=== PATIENT | male | born 1940 | race Caucasian/White ===

== ENCOUNTER 2017-04-30 12:20 | Inpatient (IN) | payer MEDICARE ==
[2017-04-30 14:09] LABS: #Basophils 0.1 thou/uL (0.0-0.2); #Eosinphils 0.1 thou/uL (0.0-0.7); #Lymphocytes 1.1 thou/uL (1.20-3.40); #Monocytes 0.3 thou/uL (0.11-0.59); #Neutrophils 2.9 thou/uL (1.40-6.50); %Basophils 1.5 % (0.0-1.0); %Eosinophils 2.6 % (0.0-10.0); %Lymphocytes 23.3 % (21.0-51.0); %Monocytes 7.6 % (0.0-10.0); Hematocrit 40.7 % (42.0-52.0); Mean Platelet Volume 8.2 fL (7.4-10.4); Red Blood Cell (RBC) Count 4.02 mill/uL (4.70-6.10); White Blood Cell (WBC) Count 4.5 thou/uL (4.8-10.8)
[2017-04-30] MEDS ORDERED: Diprivan 20 ML ONE (14:12)
[2017-04-30 14:16] LABS: PTT 32.5 SEC (22.9-36.1); Prothrombin Time 15.3 SEC (12.0-14.7)
[2017-04-30] MEDS ORDERED: Propofol 200 MG/20 ML VIAL ONE (14:44)
[2017-04-30] MEDS ORDERED: DOPamine 400 MG/D5W 250 ML 250 ML IVPB PRN (18:38)
[2017-04-30 19:08] VITALS: BMI 26.4
[2017-04-30] MEDS ORDERED: diphenhydrAMINE 25 MG CAP PO PRN (19:40)
[2017-04-30] MEDS ORDERED: Ondansetron HCl/PF 4 MG/2 ML Vial IVP PRN (19:40)
[2017-04-30] MEDS ORDERED: Bisacodyl 5 MG TAB PO PRN (19:40)
[2017-04-30] MEDS ORDERED: Bisacodyl 10 MG SUPP PR PRN (19:40)
[2017-04-30] MEDS ORDERED: traMADol HCl 50 MG TAB PO PRN (19:40)
[2017-04-30] MEDS ORDERED: Nitroglycerin 0.4 MG TAB (25 Tab Bottle) SL PRN (19:40)
[2017-04-30] MEDS ORDERED: Acetaminophen 325 MG TAB PO PRN (19:40)
[2017-04-30] MEDS ORDERED: Mag-Al 1200 mg/1200 mg/30 ML UDCUP PO PRN (19:40)
[2017-04-30] MEDS ORDERED: Silver Sulfadiazine 1% Cream 50 GM JAR TOP PRN (19:40)
[2017-04-30] MEDS ORDERED: Temazepam 15 MG CAP PO PRN (19:40)
--- NOTE | 2017-04-30 23:31 | OP ---
DATE OF SERVICE: 04/30/2017 PROCEDURE PERFORMED: Cardioversion. REASON FOR PROCEDURE: Mr. Henriquez is a 77-year-old man with a history of atrial flutter. He is on Eliquis for anticoagulation. He has normal heart function, otherwise here for a cardioversion. DESCRIPTION OF PROCEDURE: The patient received propofol per Anesthesia specialist. After an adequa te level of sedation achieved, a synchronized 70-joule shock promptly converted back to sinus rhythm . Occasionally, junctional bradycardia was also seen. A long pause was seen post-cardioversion and transient pacing was also instituted. Following that with improving consciousness, the heart rates improved. PLAN: 1. Monitor for heart rates. We will get 12-lead EKG. 2. Continue Eliquis. 3. Hence the bradycardia, hold metoprolol, consider pacing if symptoms noted. 4. The patient is set for cavotricuspid isthmus ablation after return from their trip.
[2017-05-01] MEDS ORDERED: CEFAZOLIN 1 GM VIAL ONE (15:38)
[2017-05-01] MEDS ORDERED: CEFAZOLIN/Water 2 GM/20 ML SYRINGE ONE (15:38)
[2017-05-01] MEDS ORDERED: Fentanyl 100 MCG/2 ML VIAL ONE (16:03)
--- NOTE | 2017-05-01 18:04 | PRG ---
DATE OF SERVICE: 05/01/2017 This is a followup note. SUBJECTIVE: Mr. Henriquez is doing fair, continued to be dizzy overnight and eventually was starte d on dopamine. This morning he is stable on dopamine. OBJECTIVE DATA: VITAL SIGNS: Blood pressure is 105/57, heart rate 51, respiration 16, temperature is 97.8 degrees F ahrenheit. GENERAL: Alert and oriented man in no apparent distress. NECK: Supple. Jugular veins not distended. CHEST: Coarse without crackles. CARDIOVASCULAR: Heart sounds are regular to rate and rhythm. No murmur or gallop. ABDOMEN: Benign. Bowel sounds positive. EXTREMITIES: Lower extremities without edema, clubbing or cyanosis. DATABASE: The EKG reveals sinus bradycardia, occasional atrial tachycardia runs seen, no atrial flu tter is noted. ASSESSMENT AND PLAN: Mr. Henriquez is a 77-year-old man with prior history of hypertension and armando e mild dementia who presents with atrial flutter. He has been cardioverted from atrial flutter, but remained in marked sinus bradycardia with these symptoms. He required dopamine overnight for heart rate maintenance. He has been off beta blockers now for 3 days. I discussed the pros and cons about the potential pacemaker implant and we will proceed with this an d we have been holding her Eliquis overnight. We will resume Eliquis after her pacemaker implant tod tiffanie. Risks and benefits including bleeding and strokes were discussed. They are willing to proceed.
--- NOTE | 2017-05-01 20:25 | PRG ---
DATE OF SERVICE: 04/30/2017 ELECTROPHYSIOLOGY FOLLOWUP NOTE SUBJECTIVE: Mr. Henriquez is here after his successful cardioversion from atrial flutter to sinus rhythm, but his heart rates remain extremely bradycardic. He had episodic atrial tachyarrhythmias, but now atrial flutter is seen. Now his heart rates are in the 40s and he has dizzy spells. Blood pressure is adequate. He has not taken his metoprolol succinate yesterday or Thursday. He has no chest pains, no PND or orthopnea though. He has no stroke-like symptoms. No bleeding issues. Cont inues on Eliquis. The rest of the 12-point review system otherwise unremarkable. OBJECTIVE DATA: VITAL SIGNS: Blood pressure is 120/78, heart rate 48, respirations 15, temperature 97.7 degrees Fah renheit. GENERAL: Alert and oriented man, in no apparent distress. NECK: Supple. Jugular veins not distended. CHEST: Coarse without crackles. CARDIOVASCULAR: Heart sounds are regular to rate and rhythm. No murmur or gallop. ABDOMEN: Benign. Bowel sounds positive. EXTREMITIES: Lower extremities without edema, clubbing or cyanosis. DATABASE: EKG and telemetry reveals sinus rhythm, sinus bradycardia, occasional atrial tachycardia in the 90s is seen. Most of the time, his heart rate was in the 40s, occasionally gets below 40. LABORATORY DATA: White cells 4.5, hemoglobin 13.3, platelet count 176. INR 1.2 on 04/30/2017. ASSESSMENT AND PLAN: Mr. Henriquez is a 77-year-old man with history of hypertension and persisten t atrial flutter. He has been started on Eliquis over a month ago and has been tolerating it well. Now, he is here for cardioversion, which he underwent successfully. On the other hand, his recurre nt rhythm is sinus bradycardia. He has not been on beta kaiser for over 2 days. We will likely ne ed to admit him for monitoring overnight. If the heart rate does not improve, IV dopamine could be used especially if symptoms develop. If very necessary and again heart rate remains in this range, he might benefit from a dual chamber p acemaker. Intermediate plans for cavotricuspid isthmus ablation is also present, which he prefers to do it after his vacation plans in a couple of weeks.
--- NOTE | 2017-05-02 00:07 | CON ---
DATE OF CONSULTATION: 05/01/2017 SERVICE: Pulmonary Medicine. REASON FOR CONSULTATION: IMCU patient. HISTORY OF PRESENT ILLNESS: The patient is a 77-year-old white male with past medical history significant for atrial fibrillation. He underwent elective outpatient cardioversion, and went into a severe rosa isela arrhythmia requiring chronotropic help for greater than 2 days despite holding all rate control medications. Ultimately, it was decided to put a pacemaker. He is actually about to go for that. He is currently without complaints of fevers, chills, nausea, vomiting, chest pain, diarrhea or shortness of breath. PAST MEDICAL HISTORY: 1. Hypertension. 2. Dyslipidemia. 3. Atrial fibrillation. 4. Benign prostatic hypertrophy. PAST SURGICAL HISTORY: 1. Prostate surgery. 2. Hernia repair with mesh. 3. Pacemaker placement. SOCIAL HISTORY: Negative for significant alcohol, tobacco or illicit drug use. FAMILY HISTORY: Noncontributory. ALLERGIES: No known drug allergies. MEDICATIONS: List of his inpatient medications was reviewed. No updates were made at this time. ROS: Gen, HEENT, CV, Resp, GI, , MS, Neuro, and skin are negative except as mentioned in the HPI. PHYSICAL EXAMINATION: VITAL SIGNS: Afebrile, pulse 70, blood pressure 139/31, respirations 18, saturation 99% on room air. GENERAL: The patient is awake and alert, in no apparent distress. LUNGS: Excellent air entry with no prolonged expiratory phase, wheezing, rhonchi or crackles. HEART: Normal rate, regular. ABDOMEN: Soft, nontender, nondistended, bowel sounds positive. MUSCULOSKELETAL: No cyanosis or clubbing. No pitting in the bilateral lower extremities. NEUROLOGIC: Grossly nonfocal. LABORATORY DATA: WBC 4.5, hemoglobin 13.3, platelets 176,000. INR 1.2. ASSESSMENT: 1. Atrial fibrillation with rapid ventricular response, status post successful cardioversion, resulting in bradycardia. 2. Bradyarrhythmia. 3. Hypertension. 4. Dyslipidemia. PLAN: The patient is currently on a dopamine drip. He is in line for pacemaker this afternoon. Pulmonary will continue to follow while the patient remains in this location, but if all goes well, he will likely be discharged from the hospital tomorrow. [facility] CENTERDonavon
[2017-05-02 07:28] VITALS: BP 148/74; TEMP 98
--- NOTE | 2017-05-02 09:33 | RAD ---
SINGLE VIEW OF THE CHEST: COMPARISON: 03/23/12. HISTORY: Cardiac pacemaker device placement for cardiac arrhythmia. FINDINGS: A single view of the chest shows an enlarged cardiomediastinal silhouette. A left subclavian pacema ker is seen with its leads in the right atrium and ventricle. There is no evidence of consolidation , mass, or pleural effusion. No pneumothorax is seen. IMPRESSION: Status post pacemaker placement without evidence of complication. POS: SUSANNAH
--- NOTE | 2017-05-02 15:02 | PRG ---
DATE OF SERVICE: 05/02/2017 SERVICE: Pulmonary Medicine. INTERVAL HISTORY: Patient is doing absolutely fantastic after placement of pacemaker. He currently denies any fevers, chills, nausea, or vomiting. There are no overnight events. PHYSICAL EXAMINATION: VITAL SIGNS: Afebrile, pulse 60, blood pressure 148/74, respirations 20, saturation 98% on room air . GENERAL: Patient is awake, alert, in no apparent distress. LUNGS: Excellent air entry with prolonged expiratory phase. Minimal dependent crackles are present . HEART: Normal rate, regular. ABDOMEN: Soft, nontender, nondistended. Bowel sounds positive. MUSCULOSKELETAL: No cyanosis or clubbing. No pitting in the bilateral lower extremities. NEUROLOGIC: Grossly nonfocal. IMAGING: Pacemaker is in good position. No evidence of pneumothorax is present. No acute cardiopu lmonary abnormality is identified other than some minimal blunting of the left costophrenic angle an d some degree of cephalization, more pronounced on the right. ASSESSMENT: 1. Atrial fibrillation with rapid ventricular response, status post successful cardioversion, resul ting in underlying bradyarrhythmia, requiring pacemaker placement. 2. Bradyarrhythmia. 3. Hypertension. 4. Dyslipidemia. PLAN: The patient has no barriers to dismissal from a pulmonary perspective. Pulmonary will contin ue to follow if he remains in this location.
[2017-05-02] MEDS ORDERED: Apixaban 5 MG TAB PO SCH (17:00)
--- NOTE | 2017-05-02 18:37 | DIS ---
DATE OF ADMISSION: 04/30/2017 DATE OF DISCHARGE: 05/02/2017 ADMITTING DIAGNOSES: 1. Atrial flutter. 2. Sick sinus syndrome. DISCHARGE DIAGNOSES: 1. Status post cardioversion on 04/30/2017. 2. Status post pacemaker implantation 05/01/2017. HOSPITAL COURSE: Mr. Henriquez was admitted originally for elective cardioversion. He had been an ticoagulated before and was promptly cardioverted without difficulty. On the other hand, his return rate was very slow below 40. He has been symptomatic with this. His metoprolol has been on hold f or over 2 days. We monitored him overnight, eventually required dopamine for rate control. Subsequ ent day, decision was made to proceed with the pacemaker implantation. Anticoagulation was on hold overnight. He tolerated the procedure well. Subsequent day, his vital signs, blood pressure is 148 /74, heart rate 60, temperature 90 degrees Fahrenheit. The patient is afebrile. Chest x-ray showed no pneumothorax. Interrogation of his device reveals a [employer] Advisa dual chamber pacemaker with voltage of 3.12 v olts. Lead parameters are atrium 532 ohms, RV of 628 ohms. Capture threshold is 0.375 volts and 0. 4 in both leads. Sensing 1.1 millivolts in atrium and 10.9 millivolts in right ventricle. CONCLUSION: 1. The patient is stable for discharge. 2. Plan routine postop care and discharge home on a week of antibiotics.
[2017-05-03] MEDS ORDERED: Apixaban 5 MG TAB PO SCH (09:00)
--- NOTE | 2017-05-10 14:47 | EKG ---
Test Reason : PREOP CARDIOVERSION Blood Pressure : / mmHG Vent. Rate : 103 BPM Atrial Rate : 286 BPM P-R Int : 000 ms QRS Dur : 092 ms QT Int : 348 ms P-R-T Axes : 000 053 010 degrees QTc Int : 455 ms Atrial flutter with variable A-V block Inferior infarct , age undetermined Abnormal ECG No previous ECGs available Confirmed by SUSIE ROSS (2) on 05/10/2017 2:47:17 PM Referred By: PATSY Confirmed By:SUSIE ROSS
--- NOTE | 2017-05-10 14:49 | EKG ---
Test Reason : POST CARDIOVERSION Blood Pressure : / mmHG Vent. Rate : 044 BPM Atrial Rate : 044 BPM P-R Int : 140 ms QRS Dur : 100 ms QT Int : 450 ms P-R-T Axes : 064 054 073 degrees QTc Int : 384 ms Marked sinus bradycardia Abnormal ECG When compared with ECG of 30-APR-2017 15:01, (Unconfirmed) Sinus rhythm has replaced Junctional rhythm Confirmed by SUSIE ROSS (2) on 05/10/2017 2:49:19 PM Referred By: PATSY Confirmed By:SUSIE ROSS
--- NOTE | 2017-05-10 14:49 | EKG ---
Test Reason : POST CARDIOVERSION Blood Pressure : / mmHG Vent. Rate : 042 BPM Atrial Rate : 049 BPM P-R Int : 000 ms QRS Dur : 122 ms QT Int : 434 ms P-R-T Axes : 000 053 071 degrees QTc Int : 362 ms Severe junctional b radycardia with one sinus beat Abnormal ECG Confirmed by SUSIE ROSS (2) on 05/10/2017 2:48:52 PM Referred By: PATSY Confirmed By:SUSIE ROSS
== END 2017-05-02 12:47 | disposition home or self-care (01) | DRG 244 ==
LOC: CCL 12:20 → IMCU/EMU 18:08
PROVIDERS: ADMIT Internal Medicine Cardiovascular Disease; ATTEND Internal Medicine Cardiovascular Disease
PROC: 5A2204Z Restoration of Cardiac Rhythm, Single (ICD-10-PCS; principal; 2017-04-30)
PROC: 0JH606Z Insertion of Pacemaker, Dual Chamber into Chest Subcutaneous Tissue and Fascia, Open Approach (ICD-10-PCS; 2017-05-01)
PROC: 02H63JZ Insertion of Pacemaker Lead into Right Atrium, Percutaneous Approach (ICD-10-PCS; 2017-05-01)
PROC: 02HK3JZ Insertion of Pacemaker Lead into Right Ventricle, Percutaneous Approach (ICD-10-PCS; 2017-05-01)
DX: I48.92 Unspecified atrial flutter (principal); F03.90 Unspecified dementia, unspecified severity, without behavioral disturbance, psychotic disturbance, mood disturbance, and anxiety; I49.5 Sick sinus syndrome; I10 Essential (primary) hypertension; Z79.01 Long term (current) use of anticoagulants; E78.5 Hyperlipidemia, unspecified; N40.0 Benign prostatic hyperplasia without lower urinary tract symptoms
CPT/HCPCS: 33208; 36415; 71010; 85025; 85610; 85730; 92960; 93005; 93010; C1785; C1898; J0690; J2704; J3010; J3490

== ENCOUNTER 2017-10-08 09:42 | Outpatient (CLI) | payer MEDICARE ==
[~2017-10-08 09:42] MED LIST: Iopamidol 370 76% 100 ML VIAL ONE
--- NOTE | 2017-10-08 12:27 | CT ---
CT ANGIOGRAM CHEST WITH 3D RENDERING: HISTORY: A 77-year-old male with a history of a thoracic aortic aneurysm without rupture, hypertension, palpit ations, and elevated D-dimer. FINDINGS: There is very good opacification of the thoracic aorta. There is suboptimal opacification of the pul monary arteries. There is no evidence for central pulmonary artery thrombosis. There is three-vesse l coronary artery calcific disease. Left ICD is in place. There are some atherosclerotic changes of the thoracic aorta, but no evidence for a focal aneurysm. The aortic root measures approximately 3. 8 cm transversely. IMPRESSION: 1. Atherosclerosis of the thoracic aorta without significant focal aneurysm. 2. Three-vessel coronary artery calcific disease. 3. Very suboptimal opacification of the pulmonary arteries. 4. Other findings as above. POS: SUSANNAH
== END 2017-10-08 09:43 | disposition home or self-care (01) ==
LOC: SCSCT 09:42
PROVIDERS: ATTEND Internal Medicine Cardiovascular Disease
DX: I71.2 Thoracic aortic aneurysm, without rupture (principal); I70.0 Atherosclerosis of aorta; I25.10 Atherosclerotic heart disease of native coronary artery without angina pectoris
CPT/HCPCS: 71275; 82565